=== PATIENT | male | born 2005 | race Caucasian/White ===

== ENCOUNTER 2025-04-07 15:56 | Emergency (ER) | payer OTHER ==
[2025-04-07] MEDS: Fluorescein 1 MG Ophth Strip EYELF ONE (17:18)
== END 2025-04-07 17:10 | disposition home or self-care (01) ==
LOC: JD.ED 15:56
DX: T15.92XA Foreign body on external eye, part unspecified, left eye, initial encounter (principal); W44.8XXA Other foreign body entering into or through a natural orifice, initial encounter; Y93.89 Activity, other specified
CPT/HCPCS: 65205; 99283; A9270; J3490

== ENCOUNTER 2025-06-17 15:49 | Emergency (ER) | payer OTHER ==
[2025-06-17] MEDS: Fluorescein 1 MG Ophth Strip EYELF ONE (16:28)
== END 2025-06-17 18:30 | disposition home or self-care (01) ==
LOC: JD.ED 15:49
DX: T15.02XA Foreign body in cornea, left eye, initial encounter (principal); W44.8XXA Other foreign body entering into or through a natural orifice, initial encounter
CPT/HCPCS: 65222; 99283; A9270; J3490